=== PATIENT | female | born 1945 | race Caucasian/White ===

== ENCOUNTER 2017-08-19 06:08 | Inpatient (IN) | payer OTHER ==
[2017-08-19] MEDS ORDERED: PROPOFOL 200 MG INJ (07:00)
[2017-08-19] MEDS ORDERED: HEPARIN 1000 UNITS/ML 10 ML INJ ×2 (07:29→09:05)
[2017-08-19] MEDS ORDERED: THROMBIN 5000 UNIT VIAL (07:29)
[2017-08-19] MEDS ORDERED: GELATIN SIZE 100 SPONGE (07:29)
[2017-08-19] MEDS ORDERED: MIDAZOLAM 1 MG/ML 2 ML INJ (08:01)
[2017-08-19] MEDS ORDERED: ROCURONIUM 50 MG INJ (08:01)
[2017-08-19] MEDS ORDERED: NEOSTIGMINE 3 MG/3 ML SYRINGE ×2 (08:01→10:18)
[2017-08-19] MEDS ORDERED: PROPOFOL 20 ML (08:01)
[2017-08-19] MEDS ORDERED: CEFAZOLIN 1 GM INJ (08:01)
[2017-08-19] MEDS ORDERED: FENTAnyl 50 MCG/ML VIAL (08:01)
[2017-08-19] MEDS ORDERED: METOCLOPRAMIDE 10 MG INJ (08:02)
[2017-08-19] MEDS ORDERED: ONDANSETRON 4 MG INJ (08:02)
[2017-08-19] MEDS: HEPARIN 1000 UNITS/ML 10 ML INJ IRR (08:15)
[2017-08-19] MEDS: THROMBIN 5000 UNIT VIAL TOP (08:30)
[2017-08-19] MEDS: GELATIN SIZE 100 SPONGE TOP (08:30)
[2017-08-19] MEDS ORDERED: ACETAMINOPHEN 1000MG/100ML IV 100 ML (08:52)
[2017-08-19] MEDS ORDERED: POTASSIUM CHLORIDE 40 MEQ, CALCIUM CHLORIDE 10% 1 GM in DEXTROSE 5%-0.225% NACL 1,000 ML IV (09:56)
[2017-08-19] MEDS ORDERED: LABETALOL HCL 20MG INJ IV (10:00)
[2017-08-19] MEDS ORDERED: ONDANSETRON 4 MG INJ IV ×2 (10:00)
[2017-08-19] MEDS ORDERED: KETOROLAC 30 MG INJ IV (10:00)
[2017-08-19] MEDS ORDERED: CEFAZOLIN 1 GM/50 ML (PMX) 50 ML IVPB (10:00)
[2017-08-19] MEDS ORDERED: GLYCOPYRROLATE 0.4 MG INJ (10:04)
[2017-08-19] MEDS ORDERED: NALOXONE (0.4 MG/ML) INJ (10:28)
[2017-08-19] MEDS ORDERED: METOPROLOL 5 MG INJ (10:28)
[2017-08-19] MEDS ORDERED: EPHEDrine SULFATE 50 MG/5 ML SYG (10:29)
[2017-08-19] MEDS: hydrALAzine 20 MG INJ IV (10:55)
[2017-08-19] MEDS: niCARdipine 50 MG in SOD CHLORIDE 0.9% 480 ML IV ×4 (11:37→19:46)
[2017-08-19] MEDS: ASPIRIN 81 MG TAB PO (11:54)
[2017-08-19] MEDS ORDERED: GABAPENTIN 300 MG CAP PO (13:00)
[2017-08-19] MEDS: CLOPIDOGREL 75 MG TAB PO (13:24)
[2017-08-19] MEDS: GABAPENTIN 300 MG CAP PO (14:56)
[2017-08-19 15:18] LABS: ANION GAP 12 (8-16); BLOOD UREA NITROGEN 29 mg/dl (7-20); CALCIUM 8.3 mg/dl (8.4-10.2); CARBON DIOXIDE 26 mmol/L (21-31); CHLORIDE 111 mmol/L (97-110); CREATININE 0.73 mg/dl (0.44-1.00); GLUCOSE 158 mg/dl (70-220); MAGNESIUM 1.4 mg/dl (1.7-2.5); PHOSPHORUS 3.3 mg/dl (2.5-4.9); SODIUM 146 mmol/L (135-144)
[2017-08-19 15:49] LABS: POTASSIUM 2.9 mmol/L (3.5-5.1)
[2017-08-19] MEDS ORDERED: MAGNESIUM SULFATE 4 GM in DEXTROSE 5% 100 ML IV (16:00)
[2017-08-19] MEDS: POTASSIUM CHLORIDE (SR) 20 MEQ TAB PO (17:14)
[2017-08-19] MEDS: CEFAZOLIN 1 GM/50 ML (PMX) 50 ML IVPB (17:15)
[2017-08-19] MEDS: MAGNESIUM SULFATE 4 GM/100 ML 100 ML IVPB (17:34)
[2017-08-19] MEDS: METOPROLOL (XL) 100 MG TAB PO (21:25)
[2017-08-20] MEDS: CEFAZOLIN 1 GM/50 ML (PMX) 50 ML IVPB ×2 (00:03→08:26)
[2017-08-20] MEDS: niCARdipine 50 MG in SOD CHLORIDE 0.9% 480 ML IV ×2 (02:00→05:52)
[2017-08-20 05:02] LABS: ADD MAN DIFF? NO
[2017-08-20 05:09] LABS: WHITE BLOOD COUNT 10.9 10^3/ul (4.8-10.8)
[2017-08-20 05:09] LABS: BASOPHILS % 0.4 % (0.0-2.0); EOSINOPHILS # 0.1 10^3/ul (0.0-0.5); EOSINOPHILS % 0.6 % (0.0-7.0); HEMATOCRIT 31.9 % (37.0-47.0); HEMOGLOBIN 10.8 g/dl (12.0-16.0); LYMPHOCYTES # 1.7 10^3/ul (0.8-2.9); LYMPHOCYTES % 15.7 % (15.0-51.0); MEAN CORPUSCULAR HEMOGLOBIN 29.8 pg (29.0-33.0); MEAN CORPUSCULAR HGB CONC 33.9 g/dl (32.0-37.0); MEAN CORPUSCULAR VOLUME 88.1 fl (82.0-101.0); MEAN PLATELET VOLUME 11.4 fl (7.4-10.4); MONOCYTE # 0.7 10^3/ul (0.3-0.9); MONOCYTES % 6.7 % (0.0-11.0); NEUTROPHIL # 8.3 10^3/ul (1.6-7.5); NEUTROPHILS % 76.2 % (39.0-77.0); PLATELET COUNT 228 10^3/UL (140-415); RED BLOOD COUNT 3.62 10^6/ul (4.20-5.40); RED CELL DISTRIBUTION WIDTH 13.8 % (11.5-14.5)
[2017-08-20 05:47] LABS: ANION GAP 12 (8-16); BLOOD UREA NITROGEN 20 mg/dl (7-20); CARBON DIOXIDE 24 mmol/L (21-31); CHLORIDE 110 mmol/L (97-110); CREATININE 0.71 mg/dl (0.44-1.00); GLUCOSE 157 mg/dl (70-220); POTASSIUM 3.1 mmol/L (3.5-5.1); SODIUM 143 mmol/L (135-144)
[2017-08-20] MEDS: LEVOTHYROXINE 50 MCG TAB PO (06:36)
[2017-08-20 07:32] LABS: MAGNESIUM 2.6 mg/dl (1.7-2.5)
[2017-08-20] MEDS: METOPROLOL (XL) 100 MG TAB PO (08:27)
[2017-08-20] MEDS: CLOPIDOGREL 75 MG TAB PO (08:27)
[2017-08-20] MEDS ORDERED: ASPIRIN 81 MG TAB PO (09:00)
[2017-08-20] MEDS ORDERED: POTASSIUM CITRATE (SR) 5 MEQ TAB PO (11:00)
[2017-08-20] MEDS: POTASSIUM CHLORIDE 100 ML IVPB ×3 (11:11→13:59)
[2017-08-20 17:22] LABS: POTASSIUM 4.2 mmol/L (3.5-5.1)
== END 2017-08-20 10:35 | disposition left against medical advice (07) | DRG 39 ==
LOC: REC 06:08 → ICU 13:38
PROVIDERS: Surgery Vascular Surgery
PROC: 03CL0ZZ Extirpation of Matter from Left Internal Carotid Artery, Open Approach (ICD-10-PCS; principal; 2017-08-19 07:59)
DX: I65.22 Occlusion and stenosis of left carotid artery (principal); E11.9 Type 2 diabetes mellitus without complications; I10 Essential (primary) hypertension; Z86.73 Personal history of transient ischemic attack (TIA), and cerebral infarction without residual deficits; E87.6 Hypokalemia; E78.5 Hyperlipidemia, unspecified; Z87.891 Personal history of nicotine dependence; R09.02 Hypoxemia
CPT/HCPCS: 80048; 82962; 83735; 84100; 84132; 85025; 87081; 88304